=== PATIENT | female | born 1960 | race African-American/Black ===

== ENCOUNTER 2019-04-20 10:09 | Inpatient (IN) | payer OTHER ==
[2019-04-20 10:56] VITALS: BMI 25.2
--- NOTE | 2019-04-20 12:08 | HP ---
CIWA Score Nausea/Vomitin-No Nausea/No Vomiting Muscle Tremors: 2 Anxiety: 4-Mod. Anxious/Guarded Agitation: 2 Paroxysmal Sweats: 2 Orientation: 0-Oriented Tacttile Disturbances: 2-Mild Itch/Numbness/Burn Auditory Disturbances: 0-None Visual Disturbances: 0-None Headache: 0-None Present CIWA-Ar Total Score: 12 - Admission Criteria OASAS Guidelines: Admission for Medically Managed Detox: Requires at least one of the followin. CIWA greater than 12 2. Seizures within the past 24 hours 3. Delirium tremens within the past 24 hours 4. Hallucinations within the past 24 hours 5. Acute intervention needed for co occurring medical disorder 6. Acute intervention needed for co occurring psychiatric disorder 7. Severe withdrawal that cannot be handled at a lower level of care (continued vomiting, continued diarrhea, abnormal vital signs) requiring intravenous medication and/or fluids 8. Admission ROS [facility] Allergies/Adverse Reactions: Allergies Allergy/AdvReac Type Severity Reaction Status Date / Time No Known Allergies Allergy Verified 04/20/19 10:42 History of Present Illness: pt here requesting assistance w/ cocaine and etoh use , latest use 04/15/19 . cocaine : daily since age 40 etoh : 4-5 days/week 1/2 pint-1 pint , beer 5/day x 2 years , denies seizures , occasional tremors , + blackouts , PMHX : denies - Ebola screening Have you traveled outside of the country in the last 21 days: No (N) Have you had contact with anyone from an Ebola affected area: No Do you have a fever: No - Review of Systems Constitutional: Loss of Appetite, Night Sweats, Changes in sleep EENT: reports: Other (glasses) Respiratory: reports: No Symptoms reported Cardiac: reports: No Symptoms Reported GI: reports: Constipated, Poor Appetite : reports: Incontinence Musculoskeletal: reports: No Symptoms Reported Integumentary: reports: No Symptoms Reported Neuro: reports: Weakness Endocrine: reports: No Symptoms Reported Psychiatric: reports: Orientated x3, Agitated, Anxious, Depressed Patient History - Smoking Cessation Smoking history: Current every day smoker Have you smoked in the past 12 months: Yes Hx Chewing Tobacco Use: No Initiated information on smoking cessation: Yes 'Breaking Loose' booklet given: 04/20/19 - Substances abused Crack Substance route: Smoking Frequency: Daily Amount used: $50-$100 Age of first use: 45 Date of last use: 04/15/19 Alcohol Substance route: Oral Frequency: 3-6 times per week Amount used: 2 cans 16oz beer/ voda-1nibs Age of first use: 40 Date of last use: 04/15/19 Admission Physical Exam [facility] - Vital Signs Vital Signs: Vital Signs - 24 hr 04/20/19 10:41 Temperature 96.5 F L Pulse Rate 66 Respiratory 18 Rate Blood Pressure 120/75 - Physical General Appearance: Yes: Mild Distress, Sweating, Anxious HEENTM: Yes: EOMI, Hearing grossly Normal, Normocephalic, Normal Voice Respiratory: Yes: Chest Non-Tender, Lungs Clear, Normal Breath Sounds, No Respiratory Distress, No Accessory Muscle Use Neck: Yes: No masses,lesions,Nodules, Trachea in good position Cardiology: Yes: Regular Rhythm, Regular Rate, S1, S2 Abdominal: Yes: Non Tender, Soft Musculoskeletal: Yes: full range of Motion, Gait Steady Extremities: Yes: Normal Range of Motion, Non-Tender Neurological: Yes: Alert, Motor Strength 5/5, Depressed Affect Integumentary: Yes: Warm - Diagnostic (1) Alcohol use disorder Current Visit: Yes Status: Chronic (2) Nicotine dependence Current Visit: Yes Status: Chronic Qualifiers: Nicotine product type: cigarettes Breathalyzer - Breathalyzer Breathalyzer: 0 Urine Drug Screen - Test Device Lot number: [id number] Expiration date: 12/10/20 - Control Is test valid?: Yes - Results Drug screen NEGATIVE: Yes Urine drug screen results: ISAEL-Cocaine Inpatient Rehab Admission - Rehab Decision to Admit Inpatient rehab admission?: No
[2019-04-20] MEDS ORDERED: MENTHOL/PHENOL 1 EACH UD MM PRN (12:53)
[2019-04-20] MEDS ORDERED: BISMUTH SUBSALICYLATE 524 MG/30 ML UD PO PRN (12:53)
[2019-04-20] MEDS ORDERED: MAGNESIUM HYDROX 2400MG/30ML ORAL SUSPENSION 30 ML CUP PO PRN (12:53)
[2019-04-20] MEDS ORDERED: MAGNESIUM CITRATE 300 ML BOTTLE PO PRN (12:53)
[2019-04-20] MEDS ORDERED: METHOCARBAMOL 500 MG TABLET PO PRN (12:53)
[2019-04-20] MEDS ORDERED: ACETAMINOPHEN 325 MG TABLET (FP) PO PRN (12:53)
[2019-04-20] MEDS ORDERED: MAG HYDROX/AL HYDROX/SIMETH 30 ML UNIT-DOSE CUP PO PRN (12:53)
[2019-04-20] MEDS ORDERED: diazePAM 5 MG TABLET PO PRN (12:54)
[2019-04-20] MEDS: diazePAM 5 MG TABLET PO SCH ×2 (14:17→21:58)
[2019-04-20] MEDS: THIAMINE HCL 100 MG TABLET (FP) PO SCH (21:58)
[2019-04-20] MEDS: MELATONIN 5 MG TABLETS PO PRN (21:59)
[2019-04-21] MEDS: diazePAM 5 MG TABLET PO SCH ×3 (06:29→18:33)
[2019-04-21] MEDS: PRENATAL VITAMINS W/ FOLIC ACID TABLET (FP) PO SCH (10:16)
[2019-04-21 11:02] LABS: HEMATOCRIT 36.6 % (32.4-45.2); HEMOGLOBIN 12.2 GM/dL (10.7-15.3); MCH 28.6 pg (25.7-33.7); MCHC 33.2 g/dl (32.0-36.0); MEAN PLT VOLUME 10.4 fl (7.5-11.1); PLATELET COUNT 311 K/MM3 (134-434); RBC 4.26 M/mm3 (3.60-5.2); RDW 15.6 % (11.6-15.6); WHITE BLOOD COUNT 4.9 K/mm3 (4.0-10.0)
[2019-04-21 11:06] LABS: ALBUMIN 3.5 g/dl (3.4-5.0); BILIRUBIN,TOTAL 0.4 mg/dL (0.2-1); BLOOD UREA NITROGEN 29.8 mg/dL (7-18); CALCIUM 9.1 mg/dL (8.5-10.1); CREATININE 1.3 mg/dL (0.55-1.3); POTASSIUM 4.6 mmol/L (3.5-5.1); TOT PROT 7.4 g/dl (6.4-8.2)
[2019-04-21] MEDS ORDERED: FLU VACCINE QUAD 60 MCG/0.5 ML (MDV 19-20) IM ONE (12:00)
[2019-04-21] MEDS ORDERED: PNEUMOCOCCAL 23 VACCINE 0.5 ML VIAL IM ONE (12:00)
[2019-04-21] MEDS ORDERED: PNEUMOC 13-VAL CONJ-DIP CRM/PF 0.5 ML DISP.SYRIN IM ONE (12:00)
[2019-04-21] MEDS ORDERED: NICOTINE POLACRILEX 2 MG GUM BUC PRN (12:01)
[2019-04-21] MEDS: NICOTINE 14 MG/24 HOURS TOPICAL PATCH TD SCH (12:42)
--- NOTE | 2019-04-21 14:03 | PN ---
S CIWA - CIWA Score Nausea/Vomitin-No Nausea/No Vomiting Muscle Tremors: 2 Anxiety: 3 Agitation: 0-Normal Activity Paroxysmal Sweats: 3 Orientation: 0-Oriented Tacttile Disturbances: 0-None Auditory Disturbances: 0-None Visual Disturbances: 0-None Headache: 2-Mild CIWA-Ar Total Score: 10 BHS Progress Note (SOAP) Subjective: c/o anxiety, headache, sweats, muscle aches, and shakes. Objective: 04/21/19 14:03 Vital Signs 04/21/19 04/21/19 04/21/19 06:21 09:40 13:13 Temperature 97 F L 97.1 F L 97.2 F L Pulse Rate 61 57 L 76 Respiratory 18 18 18 Rate Blood Pressure 112/59 L 103/62 112/75 Lab Results WBC 4.9 K/mm3 (4.0-10.0) 04/21/19 07:50 RBC 4.26 M/mm3 (3.60-5.2) 04/21/19 07:50 Hgb 12.2 GM/dL (10.7-15.3) 04/21/19 07:50 Hct 36.6 % (32.4-45.2) 04/21/19 07:50 MCV 86.0 fl (80-96) 04/21/19 07:50 MCHC 33.2 g/dl (32.0-36.0) 04/21/19 07:50 RDW 15.6 % (11.6-15.6) 04/21/19 07:50 Plt Count 311 K/MM3 (134-434) 04/21/19 07:50 Sodium 140 mmol/L (136-145) 04/21/19 07:50 Potassium 4.6 mmol/L (3.5-5.1) 04/21/19 07:50 Chloride 106 mmol/L (98-107) 04/21/19 07:50 Carbon Dioxide 28 mmol/L (21-32) 04/21/19 07:50 Anion Gap 6 MMOL/L (8-16) L 04/21/19 07:50 BUN 29.8 mg/dL (7-18) H 04/21/19 07:50 Creatinine 1.3 mg/dL (0.55-1.3) 04/21/19 07:50 Random Glucose 100 mg/dL (74-106) 04/21/19 07:50 Calcium 9.1 mg/dL (8.5-10.1) 04/21/19 07:50 Labs noted. Assessment: 04/21/19 14:03 AOX3, in no acute respiratory distress. Full rom, ambulating in the unit. Withdrawal symptoms. Plan: continue detox.
[2019-04-21] MEDS: THIAMINE HCL 100 MG TABLET (FP) PO SCH (22:42)
[2019-04-21] MEDS: MELATONIN 5 MG TABLETS PO PRN (22:42)
[2019-04-22] MEDS ORDERED: diazePAM 5 MG TABLET PO ONE (06:00)
[2019-04-22] MEDS: ACETAMINOPHEN 325 MG TABLET (FP) PO PRN (06:09)
[2019-04-22] MEDS: PRENATAL VITAMINS W/ FOLIC ACID TABLET (FP) PO SCH (10:04)
[2019-04-22] MEDS: NICOTINE 14 MG/24 HOURS TOPICAL PATCH TD SCH (10:06)
--- NOTE | 2019-04-22 15:29 | PN ---
S CIWA - CIWA Score Nausea/Vomitin-No Nausea/No Vomiting Muscle Tremors: 2 Anxiety: 2 Agitation: 2 Paroxysmal Sweats: No Perspiration Orientation: 0-Oriented Tacttile Disturbances: 0-None Auditory Disturbances: 0-None Visual Disturbances: 0-None Headache: 0-None Present CIWA-Ar Total Score: 6 BHS Progress Note (SOAP) Subjective: 59 years old female admitted on 04/20/19 for alcohol withdrawal sx management treated with valium detox regimen less anxiety mild tremor Objective: 04/22/19 15:29 Vital Signs Temperature 98.7 F 04/22/19 13:18 Pulse Rate 82 04/22/19 13:18 Respiratory Rate 18 04/22/19 13:18 Blood Pressure 130/69 04/22/19 13:18 O2 Sat by Pulse Oximetry (%) Laboratory Last Values WBC 4.9 K/mm3 (4.0-10.0) 04/21/19 07:50 RBC 4.26 M/mm3 (3.60-5.2) 04/21/19 07:50 Hgb 12.2 GM/dL (10.7-15.3) 04/21/19 07:50 Hct 36.6 % (32.4-45.2) 04/21/19 07:50 MCV 86.0 fl (80-96) 04/21/19 07:50 MCH 28.6 pg (25.7-33.7) 04/21/19 07:50 MCHC 33.2 g/dl (32.0-36.0) 04/21/19 07:50 RDW 15.6 % (11.6-15.6) 04/21/19 07:50 Plt Count 311 K/MM3 (134-434) 04/21/19 07:50 MPV 10.4 fl (7.5-11.1) 04/21/19 07:50 Sodium 140 mmol/L (136-145) 04/21/19 07:50 Potassium 4.6 mmol/L (3.5-5.1) 04/21/19 07:50 Chloride 106 mmol/L (98-107) 04/21/19 07:50 Carbon Dioxide 28 mmol/L (21-32) 04/21/19 07:50 Anion Gap 6 MMOL/L (8-16) L 04/21/19 07:50 BUN 29.8 mg/dL (7-18) H 04/21/19 07:50 Creatinine 1.3 mg/dL (0.55-1.3) 04/21/19 07:50 Est GFR (CKD-EPI)AfAm 52.00 04/21/19 07:50 Est GFR (CKD-EPI)NonAf 44.87 04/21/19 07:50 Random Glucose 100 mg/dL (74-106) 04/21/19 07:50 Calcium 9.1 mg/dL (8.5-10.1) 04/21/19 07:50 Total Bilirubin 0.4 mg/dL (0.2-1) 04/21/19 07:50 AST 16 U/L (15-37) 04/21/19 07:50 ALT 22 U/L (13-61) 04/21/19 07:50 Alkaline Phosphatase 85 U/L (45-117) 04/21/19 07:50 Total Protein 7.4 g/dl (6.4-8.2) 04/21/19 07:50 Albumin 3.5 g/dl (3.4-5.0) 04/21/19 07:50 RPR Titer Nonreactive (NONREACTIVE) 04/21/19 07:50 lab noted Assessment: 04/22/19 15:29 alcohol withdrawal sx Plan: continue valium detox regimen
[2019-04-22] MEDS: MELATONIN 5 MG TABLETS PO PRN (21:48)
[2019-04-22] MEDS: THIAMINE HCL 100 MG TABLET (FP) PO SCH (21:48)
[2019-04-23] MEDS: hydrOXYzine PAMOATE 25 MG CAPSULE (FP) PO PRN ×2 (00:03→21:57)
[2019-04-23] MEDS: PRENATAL VITAMINS W/ FOLIC ACID TABLET (FP) PO SCH (10:43)
[2019-04-23] MEDS: NICOTINE 14 MG/24 HOURS TOPICAL PATCH TD SCH (10:43)
[2019-04-23] MEDS: ACETAMINOPHEN 325 MG TABLET (FP) PO PRN (10:50)
--- NOTE | 2019-04-23 11:46 | DS ---
[facility] Detox Discharge Summary Admission Date: 04/20/19 Discharge Date: 04/23/19 - History Present History: Alcohol Dependence Additional Comments: 59 years old female admitted on 04/20/19 for alcohol withdrawal sx management treated with valium detox regimen patient is alert oriented x 3 cardiac S1S2 regular rate rhythm respiratory clear lung bilaterally on auscultation abdomen soft no rebound tenderness - Physical Exam Results Vital Signs: Vital Signs Temperature 98.3 F 04/23/19 09:28 Pulse Rate 90 04/23/19 09:28 Respiratory Rate 20 04/23/19 09:28 Blood Pressure 114/76 04/23/19 09:28 O2 Sat by Pulse Oximetry (%) Pertinent Admission Physical Exam Findings: alcohol withdrawal sx Laboratory Last Values WBC 4.9 K/mm3 (4.0-10.0) 04/21/19 07:50 RBC 4.26 M/mm3 (3.60-5.2) 04/21/19 07:50 Hgb 12.2 GM/dL (10.7-15.3) 04/21/19 07:50 Hct 36.6 % (32.4-45.2) 04/21/19 07:50 MCV 86.0 fl (80-96) 04/21/19 07:50 MCH 28.6 pg (25.7-33.7) 04/21/19 07:50 MCHC 33.2 g/dl (32.0-36.0) 04/21/19 07:50 RDW 15.6 % (11.6-15.6) 04/21/19 07:50 Plt Count 311 K/MM3 (134-434) 04/21/19 07:50 MPV 10.4 fl (7.5-11.1) 04/21/19 07:50 Sodium 140 mmol/L (136-145) 04/21/19 07:50 Potassium 4.6 mmol/L (3.5-5.1) 04/21/19 07:50 Chloride 106 mmol/L (98-107) 04/21/19 07:50 Carbon Dioxide 28 mmol/L (21-32) 04/21/19 07:50 Anion Gap 6 MMOL/L (8-16) L 04/21/19 07:50 BUN 29.8 mg/dL (7-18) H 04/21/19 07:50 Creatinine 1.3 mg/dL (0.55-1.3) 04/21/19 07:50 Est GFR (CKD-EPI)AfAm 52.00 04/21/19 07:50 Est GFR (CKD-EPI)NonAf 44.87 04/21/19 07:50 Random Glucose 100 mg/dL (74-106) 04/21/19 07:50 Calcium 9.1 mg/dL (8.5-10.1) 04/21/19 07:50 Total Bilirubin 0.4 mg/dL (0.2-1) 04/21/19 07:50 AST 16 U/L (15-37) 04/21/19 07:50 ALT 22 U/L (13-61) 04/21/19 07:50 Alkaline Phosphatase 85 U/L (45-117) 04/21/19 07:50 Total Protein 7.4 g/dl (6.4-8.2) 04/21/19 07:50 Albumin 3.5 g/dl (3.4-5.0) 04/21/19 07:50 RPR Titer Nonreactive (NONREACTIVE) 04/21/19 07:50 lab noted - Treatment Hospital Course: Detox Protocol Followed, Detoxed Safely, Responded well, Discharged Condition Good, Rehab Referral Accepted Patient has Accepted [facility] Referral [facility] - Medication Discharge Medications: Ambulatory Orders NK [No Known Home Medication] 04/15/19 - Diagnosis (1) Alcohol use disorder Current Visit: Yes Status: Acute (2) Nicotine dependence Current Visit: Yes Status: Acute Qualifiers: Nicotine product type: cigarettes Substance use status: in withdrawal Qualified Code(s): F17.213 - Nicotine dependence, cigarettes, with withdrawal - AMA Did Patient Leave Against Medical Advice: No CIWA Score - CIWA Score Nausea/Vomitin-No Nausea/No Vomiting Muscle Tremors: 1-None Visible, but [place] Anxiety: 1-Mildly Anxious Agitation: 1-Slight > Activity Paroxysmal Sweats: No Perspiration Orientation: 0-Oriented Tacttile Disturbances: 0-None Auditory Disturbances: 0-None Visual Disturbances: 0-None Headache: 0-None Present CIWA-Ar Total Score: 3
[2019-04-23] MEDS: MELATONIN 5 MG TABLETS PO PRN (21:57)
[2019-04-23] MEDS: THIAMINE HCL 100 MG TABLET (FP) PO SCH (21:57)
[2019-04-24 09:10] VITALS: BP 112/77; PULSE 65; TEMP 96.9
--- NOTE | 2019-04-24 10:22 | PN ---
[facility] Progress Note Note: patient is going to [facility] today Vital Signs Temperature 96.9 F L 04/24/19 09:09 Pulse Rate 65 04/24/19 09:09 Respiratory Rate 18 04/24/19 09:09 Blood Pressure 112/77 04/24/19 09:09 O2 Sat by Pulse Oximetry (%) Laboratory Last Values WBC 4.9 K/mm3 (4.0-10.0) 04/21/19 07:50 RBC 4.26 M/mm3 (3.60-5.2) 04/21/19 07:50 Hgb 12.2 GM/dL (10.7-15.3) 04/21/19 07:50 Hct 36.6 % (32.4-45.2) 04/21/19 07:50 MCV 86.0 fl (80-96) 04/21/19 07:50 MCH 28.6 pg (25.7-33.7) 04/21/19 07:50 MCHC 33.2 g/dl (32.0-36.0) 04/21/19 07:50 RDW 15.6 % (11.6-15.6) 04/21/19 07:50 Plt Count 311 K/MM3 (134-434) 04/21/19 07:50 MPV 10.4 fl (7.5-11.1) 04/21/19 07:50 Sodium 140 mmol/L (136-145) 04/21/19 07:50 Potassium 4.6 mmol/L (3.5-5.1) 04/21/19 07:50 Chloride 106 mmol/L (98-107) 04/21/19 07:50 Carbon Dioxide 28 mmol/L (21-32) 04/21/19 07:50 Anion Gap 6 MMOL/L (8-16) L 04/21/19 07:50 BUN 29.8 mg/dL (7-18) H 04/21/19 07:50 Creatinine 1.3 mg/dL (0.55-1.3) 04/21/19 07:50 Est GFR (CKD-EPI)AfAm 52.00 04/21/19 07:50 Est GFR (CKD-EPI)NonAf 44.87 04/21/19 07:50 Random Glucose 100 mg/dL (74-106) 04/21/19 07:50 Calcium 9.1 mg/dL (8.5-10.1) 04/21/19 07:50 Total Bilirubin 0.4 mg/dL (0.2-1) 04/21/19 07:50 AST 16 U/L (15-37) 04/21/19 07:50 ALT 22 U/L (13-61) 04/21/19 07:50 Alkaline Phosphatase 85 U/L (45-117) 04/21/19 07:50 Total Protein 7.4 g/dl (6.4-8.2) 04/21/19 07:50 Albumin 3.5 g/dl (3.4-5.0) 04/21/19 07:50 RPR Titer Nonreactive (NONREACTIVE) 04/21/19 07:50 lab noted CIWA Score - CIWA Score Nausea/Vomitin-No Nausea/No Vomiting Muscle Tremors: None Anxiety: 0-No Anxiety, at Ease Agitation: 0-Normal Activity Paroxysmal Sweats: No Perspiration Orientation: 0-Oriented Tacttile Disturbances: 0-None Auditory Disturbances: 0-None Visual Disturbances: 0-None Headache: 0-None Present CIWA-Ar Total Score: 0
[2019-04-24] MEDS: PRENATAL VITAMINS W/ FOLIC ACID TABLET (FP) PO SCH (10:49)
[2019-04-24] MEDS: NICOTINE 14 MG/24 HOURS TOPICAL PATCH TD SCH (10:49)
== END 2019-04-24 12:55 | disposition other institution (70) | DRG 774 ==
LOC: YASAS 10:09 → Y3N 13:16
PROVIDERS: ADMIT Allergy & Immunology; ATTEND Allergy & Immunology
PROC: HZ2ZZZZ Detoxification Services for Substance Abuse Treatment (ICD-10-PCS; principal; 2019-04-20)
DX: F10.230 Alcohol dependence with withdrawal, uncomplicated (principal); F14.10 Cocaine abuse, uncomplicated; F17.210 Nicotine dependence, cigarettes, uncomplicated; Z59.0 Homelessness
CPT/HCPCS: 36415; 80053; 85027; 86593; 90732; G0009; Q2036

== ENCOUNTER 2019-04-24 12:37 | Inpatient (IN) | payer OTHER ==
--- NOTE | 2019-04-24 10:14 | HP ---
[facility] Rehab Assess/Revision - Admission History Admitted to Rehab from: [facility] Date of Admission to Rehab: 04/24/19 - Findings Detox History & Physical reviewed: Yes Concur with findings: Yes Comments/Additional Findings: transferred from detox to rehab admission as per protocol Inpatient Rehab Admission - Rehab Decision to Admit Inpatient rehab admission?: Yes - Initial Determination Are CD services needed?: Yes Free of communicable disease: Yes Not in need of hospitalization: Yes - Rehab Admission Criteria Previous failed treatment: Yes Poor recovery environment: Yes Comorbidities: Yes Lacks judgement: Yes Patient is meeting Inpatient Rehab admission criteria:: Yes
[~2019-04-24 12:37] MED LIST: LOPERAMIDE HCL 2 MG CAPSULE PO PRN; MAG HYDROX/AL HYDROX/SIMETH 30 ML UNIT-DOSE CUP PO PRN; MAGNESIUM CITRATE 300 ML BOTTLE PO PRN; MAGNESIUM HYDROX 2400MG/30ML ORAL SUSPENSION 30 ML CUP PO PRN; MENTHOL/PHENOL 1 EACH UD MM PRN; NICOTINE POLACRILEX 2 MG GUM BUC PRN; P-EPHED 60MG/TRIPROLIDI 2.5MG TABLET PO PRN; guaiFENesin 200 MG/10 ML 10 ML UNIT-DOSE CUPS PO PRN
[2019-04-24] MEDS: MELATONIN 5 MG TABLETS PO PRN (21:15)
[2019-04-24] MEDS: THIAMINE HCL 100 MG TABLET (FP) PO SCH (21:15)
[2019-04-25] MEDS: NICOTINE 14 MG/24 HOURS TOPICAL PATCH TD SCH (09:46)
[2019-04-25] MEDS: PRENATAL VITAMINS W/ FOLIC ACID TABLET (FP) PO SCH (09:46)
[2019-04-25] MEDS ORDERED: PT OWN MED DRAWER 7, Y5N ONE ×2 (21:11→23:57)
[2019-04-25] MEDS: MELATONIN 5 MG TABLETS PO PRN (21:20)
[2019-04-25] MEDS: THIAMINE HCL 100 MG TABLET (FP) PO SCH (21:20)
[2019-04-25] MEDS ORDERED: INSULIN (NOVOLOG) ASPART 100 UNITS/ML 10ML VIAL ONE (23:59)
[2019-04-26] MEDS: NICOTINE 14 MG/24 HOURS TOPICAL PATCH TD SCH (09:45)
[2019-04-26] MEDS: PRENATAL VITAMINS W/ FOLIC ACID TABLET (FP) PO SCH (09:45)
[2019-04-26] MEDS: THIAMINE HCL 100 MG TABLET (FP) PO SCH (21:16)
[2019-04-26] MEDS: MELATONIN 5 MG TABLETS PO PRN (21:16)
[2019-04-26] MEDS ORDERED: PT OWN MED DRAWER 7, Y5N ONE (23:05)
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
[2019-04-27] MEDS: NICOTINE 14 MG/24 HOURS TOPICAL PATCH TD SCH (10:06)
[2019-04-27] MEDS: PRENATAL VITAMINS W/ FOLIC ACID TABLET (FP) PO SCH (10:06)
[2019-04-27 15:19] LABS: EPI CELLS 0.7 /HPF (0-5/HPF); HYALINE CASTS 2 /lpf (0-8); PH,URINE 7.5 (5.0-8.0); URINE APPEARANCE CLOUDY; URINE BACTERIA 1994.5 /hpf (NEGATIVE); URINE BILIRUBIN NEGATIVE (NEGATIVE); URINE COLOR YELLOW; URINE GLUCOSE (UA) NEGATIVE (NEGATIVE); URINE KETONE NEGATIVE (NEGATIVE); URINE LEUK ESTERASE 3+ (NEGATIVE); URINE NITRITE POSITIVE (NEGATIVE); URINE PROTEIN NEGATIVE (NEGATIVE); URINE RBC 3 /hpf (0-4); URINE UROBILINOGEN 0.2 mg/dL (0.2-1.0); URINE WBC 94 /hpf (0-5)
--- NOTE | 2019-04-27 15:22 | PN ---
S Progress Note Note: Laboratory Tests 04/27/19 11:05 Urine Color Yellow Urine Appearance Cloudy Urine pH 7.5 Ur Specific [place] 1.013 Urine Protein Negative Urine Glucose (UA) Negative Urine Ketones Negative Urine Blood Negative Urine Nitrite Positive H Urine Bilirubin Negative Urine Urobilinogen 0.2 Ur Leukocyte Esterase 3+ H Urine WBC (Auto) 94 Urine RBC (Auto) 3 Urine Casts (Auto) 2 U Epithel Cells (Auto) 0.7 Urine Bacteria (Auto) 1994.5 Vital Signs Temperature 97.7 F 04/27/19 07:25 Pulse Rate 63 04/27/19 07:25 Respiratory Rate 18 04/27/19 07:25 Blood Pressure 122/70 04/27/19 07:25 O2 Sat by Pulse Oximetry (%) Patient seen for follow urine results. ROS: denies fever and dysuria, however states she feels she has to go to bathroom frequently PE: alert and oriented x 3 skin warm and dry car s1s2, resp cta bl gi soft, bs+, nt no pelvic tenderness neg CVAT A/P: UTI start Bactrim DS one tab bid x 7 days encouraged oral fluids continue to monitor clinically
[2019-04-27] MEDS ORDERED: PT OWN MED DRAWER 7, Y5N ONE (21:06)
[2019-04-27] MEDS: SULFAMETHOXAZOLE/TRIMETHOPRIM 800MG/160MG D.S. TABLET PO SCH (21:44)
[2019-04-27] MEDS: MELATONIN 5 MG TABLETS PO PRN (21:45)
[2019-04-27] MEDS: SUVOREXANT 10 MG TABLET PO PRN (21:45)
[2019-04-27] MEDS: THIAMINE HCL 100 MG TABLET (FP) PO SCH (21:45)
[2019-04-28] MEDS: NICOTINE 14 MG/24 HOURS TOPICAL PATCH TD SCH (09:58)
[2019-04-28] MEDS: SULFAMETHOXAZOLE/TRIMETHOPRIM 800MG/160MG D.S. TABLET PO SCH ×2 (09:58→21:10)
[2019-04-28] MEDS: PRENATAL VITAMINS W/ FOLIC ACID TABLET (FP) PO SCH (09:58)
[2019-04-28] MEDS: THIAMINE HCL 100 MG TABLET (FP) PO SCH (21:10)
[2019-04-28] MEDS: ACETAMINOPHEN 325 MG TABLET (FP) PO PRN (21:10)
[2019-04-28] MEDS: MELATONIN 5 MG TABLETS PO PRN (21:10)
[2019-04-29] MEDS: PRENATAL VITAMINS W/ FOLIC ACID TABLET (FP) PO SCH (09:39)
[2019-04-29] MEDS: SULFAMETHOXAZOLE/TRIMETHOPRIM 800MG/160MG D.S. TABLET PO SCH ×2 (09:39→21:41)
[2019-04-29] MEDS: NICOTINE 14 MG/24 HOURS TOPICAL PATCH TD SCH (09:39)
[2019-04-29] MEDS: ACETAMINOPHEN 325 MG TABLET (FP) PO PRN ×2 (09:41→21:42)
[2019-04-29] MEDS: THIAMINE HCL 100 MG TABLET (FP) PO SCH (21:41)
[2019-04-29] MEDS: MELATONIN 5 MG TABLETS PO PRN (21:42)
[2019-04-30] MEDS: PRENATAL VITAMINS W/ FOLIC ACID TABLET (FP) PO SCH (09:51)
[2019-04-30] MEDS: ACETAMINOPHEN 325 MG TABLET (FP) PO PRN (09:51)
[2019-04-30] MEDS: SULFAMETHOXAZOLE/TRIMETHOPRIM 800MG/160MG D.S. TABLET PO SCH ×2 (09:51→21:41)
[2019-04-30] MEDS: NICOTINE 14 MG/24 HOURS TOPICAL PATCH TD SCH (09:52)
[2019-04-30] MEDS: IBUPROFEN 400 MG TABLET (FP) PO PRN (14:28)
[2019-04-30] MEDS ORDERED: PT OWN MED DRAWER 7, Y5N ONE (16:50)
[2019-04-30] MEDS: THIAMINE HCL 100 MG TABLET (FP) PO SCH (21:41)
[2019-04-30] MEDS: MELATONIN 5 MG TABLETS PO PRN (21:42)
[2019-04-30] MEDS: SUVOREXANT 10 MG TABLET PO PRN (21:42)
[2019-05-01] MEDS: ACETAMINOPHEN 325 MG TABLET (FP) PO PRN ×3 (07:59→21:11)
[2019-05-01] MEDS: SULFAMETHOXAZOLE/TRIMETHOPRIM 800MG/160MG D.S. TABLET PO SCH ×2 (10:12→21:10)
[2019-05-01] MEDS: NICOTINE 14 MG/24 HOURS TOPICAL PATCH TD SCH (10:12)
[2019-05-01] MEDS: PRENATAL VITAMINS W/ FOLIC ACID TABLET (FP) PO SCH (10:13)
[2019-05-01] MEDS: IBUPROFEN 400 MG TABLET (FP) PO PRN (10:14)
[2019-05-01] MEDS ORDERED: PT OWN MED DRAWER 7, Y5N ONE ×2 (19:54→22:50)
[2019-05-01] MEDS: THIAMINE HCL 100 MG TABLET (FP) PO SCH (21:10)
[2019-05-01] MEDS: MELATONIN 5 MG TABLETS PO PRN (21:10)
[2019-05-02] MEDS: NICOTINE 14 MG/24 HOURS TOPICAL PATCH TD SCH (09:45)
[2019-05-02] MEDS: PRENATAL VITAMINS W/ FOLIC ACID TABLET (FP) PO SCH (09:45)
[2019-05-02] MEDS: SULFAMETHOXAZOLE/TRIMETHOPRIM 800MG/160MG D.S. TABLET PO SCH ×2 (09:45→21:37)
[2019-05-02] MEDS: IBUPROFEN 400 MG TABLET (FP) PO PRN (09:45)
[2019-05-02] MEDS ORDERED: NICOTINE POLACRILEX 4 MG GUM BUC PRN (10:41)
[2019-05-02] MEDS ORDERED: COLLOIDAL OATMEAL 1 BAR EACH TP PRN (10:44)
--- NOTE | 2019-05-02 11:19 | PN ---
[facility] Progress Note (SOAP) Subjective: patient seen for c/o headache. However, patient is more concerned about her racing thoughts at night when she tries to sleep. States that the thoughts keep her up at night. Also c/o itching wherever she placed the nicotine patch and also c/o dry skin. Objective: Vital Signs (72 hours) 04/30/19 04/30/19 04/30/19 00:30 03:30 07:33 Temperature 97.7 F Pulse Rate 62 Respiratory 17 18 18 Rate Blood Pressure 106/64 05/01/19 05/01/19 05/01/19 00:30 03:30 06:57 Temperature 97.4 F L Pulse Rate 70 Respiratory 18 18 16 Rate Blood Pressure 103/61 05/02/19 05/02/19 05/02/19 00:35 03:20 07:04 Temperature Pulse Rate Respiratory 18 18 18 Rate Blood Pressure 05/02/19 11:16 P/E: General: no apparent distress, found scratching her arms HEENTM: normocephalic, PERRLA, edentulous Lungs: clear Heart: s1 s2 MSK: full weight bearing, full ROM, steady gait Neuro: Cn 2-12 intact SKIN: dry, reddened patches on forearms and chest where patches were placed. 05/02/19 11:20 Assessment: Allergic reaction to nicotine patch Insomnia-related to racing thoughts Headache 05/02/19 11:18 05/02/19 11:19 05/02/19 11:22 05/02/19 11:22 Plan: Itchiness-Benadryl cream and po ordered, aveeno soap ordered, lac-hydrin cream ordered. Nicoderm patch discontinued. Insomnia-Psychiatric consult ordered to evaluate for insomnia and racing thoughts. Headache: will probably resolve with sleep. Advised patient to increase fluids and use motrin if the tylenol is not effective.
[2019-05-02] MEDS: diphenhydrAMINE HCL 25 MG CAPSULE (FP) PO PRN ×2 (12:43→19:06)
[2019-05-02] MEDS ORDERED: PT OWN MED DRAWER 7, Y5N ONE ×3 (16:17→21:38)
[2019-05-02] MEDS: THIAMINE HCL 100 MG TABLET (FP) PO SCH (21:37)
[2019-05-02] MEDS: MELATONIN 5 MG TABLETS PO PRN (21:37)
[2019-05-03] MEDS: diphenhydrAMINE HCL 25 MG CAPSULE (FP) PO PRN ×2 (06:18→14:26)
[2019-05-03] MEDS ORDERED: PT OWN MED DRAWER 7, Y5N ONE ×3 (08:49→21:29)
[2019-05-03] MEDS: PRENATAL VITAMINS W/ FOLIC ACID TABLET (FP) PO SCH (09:46)
[2019-05-03] MEDS: SULFAMETHOXAZOLE/TRIMETHOPRIM 800MG/160MG D.S. TABLET PO SCH ×2 (09:46→21:26)
[2019-05-03] MEDS: AMMONIUM LACTATE 12% LOTION 225 GM BOTTLE TP PRN (09:47)
--- NOTE | 2019-05-03 16:44 | PN ---
Psychiatric Progress Note Vital Signs: Vital Signs Period Temp Pulse Resp BP Sys/Hernández Pulse Ox Last 24 Hr 97.1 F 71 16-18 106/68 Date of Session: 05/03/19 Chief Complaint:: " i'm still having trouble sleeping." HPI: Patient admitted to [facility] for alcohol and cocaine dependence. Currently c/o insomnia. ROS: Patient is coherent, alert + oriented X3. Current Medications: Active Medications Generic Name Dose Route Start Last Admin Trade Name Freq PRN Reason Stop Dose Admin Acetaminophen 650 mg 04/24/19 10:15 05/01/19 21:11 Tylenol - PO 650 mg Q4H PRN Administration FEVER Al Hydroxide/Mg Hydroxide 30 ml 04/24/19 10:15 Mylanta Oral Suspension - PO Q6H PRN DYSPEPSIA Colloidal Oatmeal 1 applic 05/02/19 10:44 05/02/19 11:57 Aveeno Soap - TP 1 applic DAILY PRN Administration HYGEINE Diphenhydramine HCl 25 mg 05/02/19 10:42 05/03/19 14:26 Benadryl - PO 25 mg Q6H PRN Administration FOR ITCHING Eucalyptus/Menthol/Phenol/Sorbitol 1 each 04/24/19 10:15 Cepastat Lozenge - MM Q4H PRN SORE THROAT Guaifenesin 10 ml 04/24/19 10:15 Robitussin - PO Q6H PRN COUGH Ibuprofen 400 mg 04/24/19 10:15 05/02/19 09:45 Motrin - PO 400 mg Q6H PRN Administration Pain level 4-6 Lactic Acid 1 applic 05/02/19 10:43 05/03/19 09:47 Lac-Hydrin 12 TP 1 applic BID PRN Administration DRY SKIN Loperamide HCl 4 mg 04/24/19 10:15 Imodium - PO Q6H PRN DIARRHEA Magnesium Citrate 300 ml 04/24/19 10:15 Citroma - PO Q48H PRN CONSTIPATION Magnesium Hydroxide 30 ml 04/24/19 10:15 Milk Of Magnesia - PO DAILY PRN CONSTIPATION Melatonin 5 mg 04/24/19 22:00 05/02/19 21:37 Melatonin PO 5 mg HS PRN Administration INSOMNIA Nicotine Polacrilex 4 mg 05/02/19 10:41 Nicorette Gum - BUC Q2H PRN NICOTINE REPLACEMENT RX Multivit/Folic Acid/Iron 1 tab 04/25/19 10:00 05/03/19 09:46 Vitamins (Sjr) - PO 1 tab DAILY GOPI Administration Pseudoephedrine/Triprolidine 1 combo 04/24/19 10:15 Actifed - PO TID PRN NASAL CONGESTION Thiamine HCl 100 mg 04/24/19 22:00 05/02/19 21:37 Vitamin B1 - PO 100 mg HS GOPI Administration Trimethoprim/Sulfamethoxazole 1 each 04/27/19 22:00 05/03/19 09:46 Bactrim Ds - PO 05/04/19 21:59 1 each BID GOPI Administration Zinc Acetate/Diphenhydramine 1 applic 05/02/19 10:45 05/03/19 09:46 Benadryl 2% Cream TP 1 applic BID GOPI Administration Medication(s) Change(s): Yes. Current Side Effect: No Lab tests ordered: No Lab tests reviewed: Yes Provider note:: Patient reports poor sleep despite accepting belsomra 10mg HS. Will d/c Belsomra 10mg and will order Belsomra 15mg Hs. Patient educated on the benefits of proper sleep hygiene. Benefits and side effects discussed. Verbal consent given. Total face to face time:: 20 Mental Status Exam - Mental Status Exam Alert and Oriented to: Time, Place, Person Cognitive Function: Good Patient Appearance: Well Groomed Mood: Euthymic Affect: Mood Congruent Patient Behavior: Appropriate, Cooperative Speech Pattern: Appropriate Voice Loudness: Normal Thought Process: Intact, Goal Oriented Thought Disorder: Not Present Hallucinations: Denies Suicidal Ideation: Denies Homicidal Ideation: Denies Insight/Judgement: Poor Sleep: Poorly Appetite: Fair Muscle strength/Tone: Normal Gait/Station: Normal Psychiatric Treatment Plan - Problem List (1) Cocaine use disorder Current Visit: Yes (2) Alcohol use disorder Current Visit: Yes (3) Nicotine dependence Current Visit: Yes Qualifiers: Nicotine product type: cigarettes Substance use status: in withdrawal Qualified Code(s): F17.213 - Nicotine dependence, cigarettes, with withdrawal (4) Substance induced mood disorder Current Visit: No (5) Substance-induced sleep disorder Current Visit: Yes
[2019-05-03] MEDS: MELATONIN 5 MG TABLETS PO PRN (21:27)
[2019-05-03] MEDS: THIAMINE HCL 100 MG TABLET (FP) PO SCH (21:27)
[2019-05-03] MEDS ORDERED: SUVOREXANT 15 MG TABLET PO PRN (22:00)
[2019-05-04] MEDS ORDERED: PT OWN MED DRAWER 7, Y5N ONE ×7 (08:52→23:26)
[2019-05-04] MEDS: SULFAMETHOXAZOLE/TRIMETHOPRIM 800MG/160MG D.S. TABLET PO SCH (09:48)
[2019-05-04] MEDS: PRENATAL VITAMINS W/ FOLIC ACID TABLET (FP) PO SCH (09:48)
[2019-05-04] MEDS: AMMONIUM LACTATE 12% LOTION 225 GM BOTTLE TP PRN ×2 (09:50→21:37)
[2019-05-04] MEDS: THIAMINE HCL 100 MG TABLET (FP) PO SCH (21:32)
[2019-05-04] MEDS: diphenhydrAMINE HCL 25 MG CAPSULE (FP) PO PRN (21:34)
[2019-05-05] MEDS: AMMONIUM LACTATE 12% LOTION 225 GM BOTTLE TP PRN (10:16)
[2019-05-05] MEDS: PRENATAL VITAMINS W/ FOLIC ACID TABLET (FP) PO SCH (10:16)
[2019-05-05] MEDS: ACETAMINOPHEN 325 MG TABLET (FP) PO PRN (10:31)
[2019-05-05] MEDS: IBUPROFEN 400 MG TABLET (FP) PO PRN (21:26)
[2019-05-05] MEDS: THIAMINE HCL 100 MG TABLET (FP) PO SCH (21:26)
[2019-05-05] MEDS ORDERED: PT OWN MED DRAWER 7, Y5N ONE (22:39)
[2019-05-06] MEDS: PRENATAL VITAMINS W/ FOLIC ACID TABLET (FP) PO SCH (10:13)
[2019-05-06] MEDS: IBUPROFEN 400 MG TABLET (FP) PO PRN (10:14)
[2019-05-06] MEDS: ACETAMINOPHEN 325 MG TABLET (FP) PO PRN ×2 (12:03→21:29)
[2019-05-06] MEDS: diphenhydrAMINE HCL 25 MG CAPSULE (FP) PO PRN (21:27)
[2019-05-06] MEDS: THIAMINE HCL 100 MG TABLET (FP) PO SCH (21:27)
[2019-05-06] MEDS ORDERED: PT OWN MED DRAWER 7, Y5N ONE (22:12)
[2019-05-07] MEDS: IBUPROFEN 400 MG TABLET (FP) PO PRN (07:27)
[2019-05-07] MEDS ORDERED: PT OWN MED DRAWER 7, Y5N ONE ×2 (08:37→21:48)
[2019-05-07] MEDS: PRENATAL VITAMINS W/ FOLIC ACID TABLET (FP) PO SCH (10:17)
[2019-05-07] MEDS: ACETAMINOPHEN 325 MG TABLET (FP) PO PRN (10:19)
--- NOTE | 2019-05-07 13:52 | PN ---
[facility] Progress Note Note: Patient presents with c/o gum pain. Patient has poor dentition, missing teeth. Vital Signs Temperature 97.7 F 05/07/19 07:07 Pulse Rate 62 05/07/19 07:07 Respiratory Rate 18 05/07/19 07:07 Blood Pressure 129/81 05/07/19 07:07 O2 Sat by Pulse Oximetry (%) Laboratory Tests 04/27/19 11:05 Urine Color Yellow Urine Appearance Cloudy Urine pH 7.5 Ur Specific [place] 1.013 Urine Protein Negative Urine Glucose (UA) Negative Urine Ketones Negative Urine Blood Negative Urine Nitrite Positive H Urine Bilirubin Negative Urine Urobilinogen 0.2 Ur Leukocyte Esterase 3+ H Urine WBC (Auto) 94 Urine RBC (Auto) 3 Urine Casts (Auto) 2 U Epithel Cells (Auto) 0.7 Urine Bacteria (Auto) 1994.5 PE: alert and oriented x 3 skin warm and dry oral mucosa moist, poor dentition, missing teeth, +decay no redness, or ulcerations/lesions noted A/P: oral/gum pain will order oral gel prn monitor clinically
[2019-05-07] MEDS: BENZOCAINE 20 % GEL TUBE MM PRN (21:37)
[2019-05-07] MEDS: MELATONIN 5 MG TABLETS PO PRN (21:39)
[2019-05-07] MEDS: THIAMINE HCL 100 MG TABLET (FP) PO SCH (21:39)
[2019-05-08] MEDS: SUVOREXANT 15 MG TABLET PO PRN ×2 (01:37→21:04)
[2019-05-08] MEDS: BENZOCAINE 20 % GEL TUBE MM PRN ×2 (10:49→21:06)
[2019-05-08] MEDS: PRENATAL VITAMINS W/ FOLIC ACID TABLET (FP) PO SCH (10:51)
[2019-05-08] MEDS: IBUPROFEN 400 MG TABLET (FP) PO PRN (10:51)
[2019-05-08] MEDS ORDERED: PT OWN MED DRAWER 7, Y5N ONE (21:04)
[2019-05-08] MEDS: MELATONIN 5 MG TABLETS PO PRN (21:04)
[2019-05-08] MEDS: THIAMINE HCL 100 MG TABLET (FP) PO SCH (21:05)
[2019-05-08] MEDS: AMMONIUM LACTATE 12% LOTION 225 GM BOTTLE TP PRN (21:08)
[2019-05-09] MEDS: PRENATAL VITAMINS W/ FOLIC ACID TABLET (FP) PO SCH (10:15)
[2019-05-09] MEDS ORDERED: PT OWN MED DRAWER 7, Y5N ONE (20:36)
[2019-05-09] MEDS: THIAMINE HCL 100 MG TABLET (FP) PO SCH (21:20)
[2019-05-09] MEDS: MELATONIN 5 MG TABLETS PO PRN (21:20)
[2019-05-09] MEDS: ACETAMINOPHEN 325 MG TABLET (FP) PO PRN (21:21)
[2019-05-09] MEDS: BENZOCAINE 20 % GEL TUBE MM PRN (21:22)
[2019-05-09] MEDS: diphenhydrAMINE HCL 25 MG CAPSULE (FP) PO PRN (21:23)
[2019-05-09] MEDS: AMMONIUM LACTATE 12% LOTION 225 GM BOTTLE TP PRN (21:25)
[2019-05-09] MEDS: SUVOREXANT 15 MG TABLET PO PRN (21:25)
[2019-05-10] MEDS: PRENATAL VITAMINS W/ FOLIC ACID TABLET (FP) PO SCH (10:27)
[2019-05-10] MEDS: IBUPROFEN 400 MG TABLET (FP) PO PRN (10:28)
[2019-05-10] MEDS ORDERED: PT OWN MED DRAWER 7, Y5N ONE (20:31)
[2019-05-10] MEDS: THIAMINE HCL 100 MG TABLET (FP) PO SCH (21:12)
[2019-05-10] MEDS: MELATONIN 5 MG TABLETS PO PRN (21:13)
[2019-05-10] MEDS: SUVOREXANT 15 MG TABLET PO PRN (21:15)
[2019-05-11] MEDS: PRENATAL VITAMINS W/ FOLIC ACID TABLET (FP) PO SCH (10:02)
[2019-05-11] MEDS: IBUPROFEN 400 MG TABLET (FP) PO PRN ×2 (10:03→21:39)
[2019-05-11] MEDS ORDERED: FLUCONAZOLE 50 MG TABLET PO ONE (12:45)
--- NOTE | 2019-05-11 12:49 | PREP.REFER ---
HIV PrEP/PEP - PrEP HIV Risk Assessment When was your last HIV test?: 7 years ago HIV Test offered: Refused (states "not right now.") Are you concerned about any sexual encounters past 6 months?: Yes (always with a condom) Have you had a STI in the last 6 months?: No Have you shared needles or other equipment?: No Are you interested in daily medication to help prevent HIV?: No Recommendation: Consider PrEP referral Comment: Patient is refusing at this time. States she always uses condoms when she has sex.
--- NOTE | 2019-05-11 12:54 | PN ---
[facility] Progress Note (SOAP) Subjective: Reports foul odor when urinating. Was treated for UTI with Bactrim previously in this admission. Also reports yellow discharge. Denies itching and burning on urination, denies urinating frequent small amounts. Objective: P/E; General: no apparent distress Genitourinary: Deferred. neuro: Cn 2-12 intact Urine Test Results Urine Color Yellow 04/27/19 11:05 Urine Appearance Cloudy 04/27/19 11:05 Urine pH 7.5 (5.0-8.0) 04/27/19 11:05 Ur Specific [place] 1.013 (1.010-1.035) 04/27/19 11:05 Urine Protein Negative (NEGATIVE) 04/27/19 11:05 Urine Glucose (UA) Negative (NEGATIVE) 04/27/19 11:05 Urine Ketones Negative (NEGATIVE) 04/27/19 11:05 Urine Blood Negative (NEGATIVE) 04/27/19 11:05 Urine Nitrite Positive (NEGATIVE) H 04/27/19 11:05 Urine Bilirubin Negative (NEGATIVE) 04/27/19 11:05 Ur Leukocyte Esterase 3+ (NEGATIVE) H 04/27/19 11:05 Vital Signs Period Temp Pulse Resp BP Sys/Hernández Pulse Ox Last 24 Hr 97.3 F 54 17-18 126/71 05/11/19 12:51 Assessment: possible UTI vaginal candidiasis 05/11/19 12:52 Plan: One dose diflucan given U/A ordered Urine culture ordered
[2019-05-11] MEDS ORDERED: PT OWN MED DRAWER 7, Y5N ONE (14:41)
[2019-05-11] MEDS: ACETAMINOPHEN 325 MG TABLET (FP) PO PRN (14:41)
[2019-05-11 20:51] LABS: EPI CELLS 1.4 /HPF (0-5/HPF); HYALINE CASTS 1 /lpf (0-8); PH,URINE 7.5 (5.0-8.0); URINE APPEARANCE CLEAR; URINE BACTERIA 3618.8 /hpf (NEGATIVE); URINE BILIRUBIN NEGATIVE (NEGATIVE); URINE COLOR YELLOW; URINE GLUCOSE (UA) NEGATIVE (NEGATIVE); URINE KETONE NEGATIVE (NEGATIVE); URINE LEUK ESTERASE 1+ (NEGATIVE); URINE NITRITE POSITIVE (NEGATIVE); URINE PROTEIN NEGATIVE (NEGATIVE); URINE RBC 1 /hpf (0-4); URINE WBC 17 /hpf (0-5)
[2019-05-11] MEDS: SUVOREXANT 15 MG TABLET PO PRN (21:38)
[2019-05-11] MEDS: MELATONIN 5 MG TABLETS PO PRN (21:39)
[2019-05-11] MEDS: THIAMINE HCL 100 MG TABLET (FP) PO SCH (21:39)
[2019-05-12] MEDS ORDERED: PT OWN MED DRAWER 7, Y5N ONE ×2 (08:49→10:06)
[2019-05-12] MEDS: PRENATAL VITAMINS W/ FOLIC ACID TABLET (FP) PO SCH (10:04)
[2019-05-12] MEDS: BENZOCAINE 20 % GEL TUBE MM PRN (10:04)
[2019-05-12] MEDS: AMMONIUM LACTATE 12% LOTION 225 GM BOTTLE TP PRN (10:06)
[2019-05-12] MEDS: IBUPROFEN 400 MG TABLET (FP) PO PRN (11:24)
[2019-05-12] MEDS: ACETAMINOPHEN 325 MG TABLET (FP) PO PRN (21:14)
[2019-05-12] MEDS: MELATONIN 5 MG TABLETS PO PRN (21:16)
[2019-05-12] MEDS: SUVOREXANT 15 MG TABLET PO PRN (21:18)
[2019-05-12] MEDS: THIAMINE HCL 100 MG TABLET (FP) PO SCH (22:03)
[2019-05-13] MEDS ORDERED: PT OWN MED DRAWER 7, Y5N ONE ×2 (08:41→20:21)
[2019-05-13] MEDS: PRENATAL VITAMINS W/ FOLIC ACID TABLET (FP) PO SCH (10:08)
--- NOTE | 2019-05-13 12:14 | PN ---
[facility] Progress Note Note: Psychiatric nurse practitioner note: Belsomra 15mg HS renewed X3. days. Verbal consent given.
[2019-05-13] MEDS: THIAMINE HCL 100 MG TABLET (FP) PO SCH (21:25)
[2019-05-13] MEDS: MELATONIN 5 MG TABLETS PO PRN (21:25)
[2019-05-13] MEDS ORDERED: SUVOREXANT 15 MG TABLET PO PRN (22:00)
[2019-05-14] MEDS: diphenhydrAMINE HCL 25 MG CAPSULE (FP) PO PRN (04:29)
[2019-05-14] MEDS ORDERED: PT OWN MED DRAWER 7, Y5N ONE ×3 (07:32→21:35)
[2019-05-14] MEDS: PRENATAL VITAMINS W/ FOLIC ACID TABLET (FP) PO SCH (10:25)
[2019-05-14] MEDS: IBUPROFEN 400 MG TABLET (FP) PO PRN (10:26)
--- NOTE | 2019-05-14 10:49 | PN ---
S Progress Note Note: Patient reports sleeping poorly despite taking Belsomra 15 mg/hs prn. Will increase medication dosage to 20 mg/hs prn
--- NOTE | 2019-05-14 14:46 | PN ---
[facility] Progress Note Note: Vital Signs Temperature 97.6 F 05/14/19 07:30 Pulse Rate 93 H 05/14/19 07:30 Respiratory Rate 18 05/14/19 07:30 Blood Pressure 111/72 05/14/19 07:30 O2 Sat by Pulse Oximetry (%) Laboratory Tests 04/27/19 05/11/19 11:05 14:50 Urine Color Yellow Yellow Urine Appearance Cloudy Clear Urine pH 7.5 7.5 Ur Specific [place] 1.013 1.013 Urine Protein Negative Negative Urine Glucose (UA) Negative Negative Urine Ketones Negative Negative Urine Blood Negative Negative Urine Nitrite Positive H Positive H Urine Bilirubin Negative Negative Urine Urobilinogen 0.2 1.0 Ur Leukocyte Esterase 3+ H 1+ H Urine WBC (Auto) 94 17 Urine RBC (Auto) 3 1 Urine Casts (Auto) 2 1 U Epithel Cells (Auto) 0.7 1.4 Urine Bacteria (Auto) 1994.5 3618.8 Microbiology 05/11/19 14:50 Urine - Urine Clean Catch Urine Culture - Final Escherichia Coli Patient seen for urine culture results. Patient denies any complaints of fever, urinary discomfort, frequency and urgency. PE: alert and oriented x 3 skin warm and dry neck supple, no jvd gi/gu nt, nd, no pelvic tenderness A/P: UTI previously treated with bactrim however culture shows resistance to medication. Sensitive to Levaquin, will order 250mg po daily x 7 days. Fluids encouraged.
[2019-05-14] MEDS: THIAMINE HCL 100 MG TABLET (FP) PO SCH (21:30)
[2019-05-14] MEDS: MELATONIN 5 MG TABLETS PO PRN (21:31)
[2019-05-14] MEDS: SUVOREXANT 20 MG TABLET PO PRN (21:32)
[2019-05-15] MEDS ORDERED: PT OWN MED DRAWER 7, Y5N ONE ×7 (07:04→22:25)
[2019-05-15] MEDS: PRENATAL VITAMINS W/ FOLIC ACID TABLET (FP) PO SCH (10:09)
[2019-05-15] MEDS: SUVOREXANT 20 MG TABLET PO PRN (21:24)
[2019-05-15] MEDS: THIAMINE HCL 100 MG TABLET (FP) PO SCH (21:25)
[2019-05-15] MEDS: MELATONIN 5 MG TABLETS PO PRN (21:25)
[2019-05-15] MEDS: AMMONIUM LACTATE 12% LOTION 225 GM BOTTLE TP PRN (21:27)
[2019-05-16] MEDS ORDERED: PT OWN MED DRAWER 7, Y5N ONE ×3 (03:54→23:46)
[2019-05-16] MEDS: PRENATAL VITAMINS W/ FOLIC ACID TABLET (FP) PO SCH (10:16)
[2019-05-16] MEDS: SUVOREXANT 20 MG TABLET PO PRN (21:14)
[2019-05-16] MEDS: diphenhydrAMINE HCL 25 MG CAPSULE (FP) PO PRN (21:14)
[2019-05-16] MEDS: MELATONIN 5 MG TABLETS PO PRN (21:14)
[2019-05-16] MEDS: THIAMINE HCL 100 MG TABLET (FP) PO SCH (21:14)
[2019-05-16] MEDS ORDERED: TUBERCULIN PPD 5 TU/0.1ML VIAL ID ONE (23:49)
[2019-05-17] MEDS ORDERED: PT OWN MED DRAWER 7, Y5N ONE ×3 (08:51→22:10)
[2019-05-17] MEDS: PRENATAL VITAMINS W/ FOLIC ACID TABLET (FP) PO SCH (10:12)
--- NOTE | 2019-05-17 15:57 | PN ---
[facility] Progress Note Note: Psychiatric nurse practitioner note: Belsomra 20mg HS renewed X3 days. Verbal consent given.
[2019-05-17] MEDS: THIAMINE HCL 100 MG TABLET (FP) PO SCH (21:22)
[2019-05-17] MEDS: MELATONIN 5 MG TABLETS PO PRN (21:22)
[2019-05-18] MEDS ORDERED: PT OWN MED DRAWER 7, Y5N ONE ×2 (08:24→21:06)
[2019-05-18] MEDS: PRENATAL VITAMINS W/ FOLIC ACID TABLET (FP) PO SCH (10:18)
[2019-05-18] MEDS: THIAMINE HCL 100 MG TABLET (FP) PO SCH (21:39)
[2019-05-18] MEDS: ACETAMINOPHEN 325 MG TABLET (FP) PO PRN (21:40)
[2019-05-18] MEDS: MELATONIN 5 MG TABLETS PO PRN (21:40)
[2019-05-18] MEDS: SUVOREXANT 20 MG TABLET PO PRN (21:41)
[2019-05-19] MEDS ORDERED: PT OWN MED DRAWER 7, Y5N ONE ×3 (06:37→22:58)
[2019-05-19] MEDS: PRENATAL VITAMINS W/ FOLIC ACID TABLET (FP) PO SCH (10:16)
[2019-05-19] MEDS: ACETAMINOPHEN 325 MG TABLET (FP) PO PRN (15:53)
[2019-05-19] MEDS: THIAMINE HCL 100 MG TABLET (FP) PO SCH (21:54)
[2019-05-19] MEDS: MELATONIN 5 MG TABLETS PO PRN (21:54)
[2019-05-19] MEDS: SUVOREXANT 20 MG TABLET PO PRN (21:55)
[2019-05-20 07:41] VITALS: BP 127/75; PULSE 71; TEMP 97.3
[2019-05-20] MEDS: PRENATAL VITAMINS W/ FOLIC ACID TABLET (FP) PO SCH (10:37)
[2019-05-20] MEDS: IBUPROFEN 400 MG TABLET (FP) PO PRN (10:38)
[2019-05-20] MEDS: ACETAMINOPHEN 325 MG TABLET (FP) PO PRN (12:34)
[2019-05-20] MEDS ORDERED: PT OWN MED DRAWER 7, Y5N ONE (18:47)
--- NOTE | 2019-05-20 19:17 | PN ---
[facility] Progress Note Note: Psychiatric nurse practitioner medical radiation therapist note: Belsomra 20mg renewed X3 days.
[2019-05-20] MEDS: SUVOREXANT 20 MG TABLET PO PRN (21:36)
[2019-05-20] MEDS: THIAMINE HCL 100 MG TABLET (FP) PO SCH (21:36)
[2019-05-20] MEDS: MELATONIN 5 MG TABLETS PO PRN (21:36)
[2019-05-20] MEDS: AMMONIUM LACTATE 12% LOTION 225 GM BOTTLE TP PRN (21:41)
[2019-05-21] MEDS: IBUPROFEN 400 MG TABLET (FP) PO PRN (09:31)
[2019-05-21] MEDS: PRENATAL VITAMINS W/ FOLIC ACID TABLET (FP) PO SCH (09:31)
[2019-05-21] MEDS ORDERED: PT OWN MED DRAWER 7, Y5N ONE ×2 (14:14→19:30)
--- NOTE | 2019-05-21 15:13 | DS ---
[facility] Rehab Discharge Summary - [facility] Rehab Discharge Summary Admission Date: 04/24/19 Discharge Date: 05/22/19 - History Present History: Alcohol dependence, Cocaine dependence Additional Comments: Pt is a 59 y/o female with a DEB admitted to rehab and scheduled for discharge on 05/22/19. Requested to be discharged early at 7:00 A.M. Pt has been referred to [place], [place] for CD aftercare. Pt is homeless and has been connected to the [facility] on [address] [place] [address] for housing needs. Pt reports she has no PCP and has been referred to [facility] for primary care needs. Pertinent Past History: Denies - Discharge Physical Exam Vital Signs: Vital Signs Temperature 97.3 F L 05/20/19 07:40 Pulse Rate 71 05/20/19 07:40 Respiratory Rate 18 05/21/19 07:23 Blood Pressure 127/75 05/20/19 07:40 O2 Sat by Pulse Oximetry (%) Alert o x 3 nad oob ambulating with steady gait cardiac:s1 s2, rrr lungs:cta,xiang. abdomen:soft,+bs,nt,nd extremities/skin:no edema,full ROM/weight bearing;skin intact. Pertinent Admission Physical Exam Findings: Laboratory Tests 04/27/19 05/11/19 11:05 14:50 Urine Color Yellow Yellow Urine Appearance Cloudy Clear Urine pH 7.5 7.5 Ur Specific [place] 1.013 1.013 Urine Protein Negative Negative Urine Glucose (UA) Negative Negative Urine Ketones Negative Negative Urine Blood Negative Negative Urine Nitrite Positive H Positive H Urine Bilirubin Negative Negative Urine Urobilinogen 0.2 1.0 Ur Leukocyte Esterase 3+ H 1+ H Urine WBC (Auto) 94 17 Urine RBC (Auto) 3 1 Urine Casts (Auto) 2 1 U Epithel Cells (Auto) 0.7 1.4 Urine Bacteria (Auto) 1994.5 3618.8 Treated for UTI with Bactrim DS. Follow up with primary care/[facility] for further management if symptoms continue. - Treatment Discharge Condition: Discharge condition good Hospital Course: Rehabilitated safely and responded well CD aftercare referral accepted - Medication Discharge Medications: Ambulatory Orders NK [No Known Home Medication] 04/15/19 - Medication-Assisted Treatment (MAT) Medication-Assisted Treatment (MAT): No - Discharge Instructions Diet, activity, other medical instructions: Diet:regular Activity: oob ad krunal Other medical instructions:follow up with CD aftercare @ [facility] Follow up with primary care - Diagnosis (1) Alcohol use disorder Status: Chronic (2) Cocaine use disorder Status: Chronic (3) Nicotine dependence Status: Chronic Qualifiers: Nicotine product type: cigarettes Substance use status: uncomplicated Qualified Code(s): F17.210 - Nicotine dependence, cigarettes, uncomplicated - Follow-up Referral Minutes to complete discharge: 20 - AMA Did Patient Leave Against Medical Advice: No
[2019-05-21] MEDS: ACETAMINOPHEN 325 MG TABLET (FP) PO PRN (17:03)
[2019-05-21] MEDS: THIAMINE HCL 100 MG TABLET (FP) PO SCH (21:28)
[2019-05-21] MEDS: SUVOREXANT 20 MG TABLET PO PRN (21:29)
[2019-05-21] MEDS: MELATONIN 5 MG TABLETS PO PRN (21:30)
== END 2019-05-22 07:00 | disposition home or self-care (01) | DRG 772 ==
LOC: YASAS 12:37 → Y3E 12:40
PROVIDERS: ADMIT Neuromusculoskeletal Medicine & OMM; ATTEND Neuromusculoskeletal Medicine & OMM
PROC: HZ42ZZZ Group Counseling for Substance Abuse Treatment, Cognitive-Behavioral (ICD-10-PCS; principal; 2019-04-24)
DX: F10.20 Alcohol dependence, uncomplicated (principal); F14.20 Cocaine dependence, uncomplicated; F17.210 Nicotine dependence, cigarettes, uncomplicated; F19.282 Other psychoactive substance dependence with psychoactive substance-induced sleep disorder; F19.24 Other psychoactive substance dependence with psychoactive substance-induced mood disorder; G47.00 Insomnia, unspecified; N39.0 Urinary tract infection, site not specified; B96.20 Unspecified Escherichia coli [E. coli] as the cause of diseases classified elsewhere; B37.3 Candidiasis of vulva and vagina; L29.8 Other pruritus; T78.49XA Other allergy, initial encounter; T50.995A Adverse effect of other drugs, medicaments and biological substances, initial encounter; Y92.238 Other place in hospital as the place of occurrence of the external cause
CPT/HCPCS: 81003; 87086; 87186